=== PATIENT | female | born 1995 | race African-American/Black ===

== ENCOUNTER 2016-12-30 00:52 | Emergency (ER) | payer MEDICAID ==
[~2016-12-30] VITALS: Ht 165.1 cm; Wt 65.0 kg
[2016-12-30] MEDS ORDERED: SODIUM CHLORIDE 0.9% 1,000 ML IV ONE (05:15)
[2016-12-30] MEDS ORDERED: ONDANSETRON HCL 4MG/2ML VIAL IV STA (05:15)
[2016-12-30] MEDS ORDERED: FAMOTIDINE 20MG/2ML VIAL IV STA (05:15)
[2016-12-30 05:32] LABS: BASOPHILS % 0.7 % (0.0-2.0); EOSINOPHILS % 2.3 % (0.0-5.0); HEMATOCRIT. 43.5 % (36.0-48.0); MEAN CORPUSCULAR HEMOGLOBIN 31.7 pg (28.0-32.0); MEAN CORPUSCULAR HGB CONC 34.4 g/dL (31.0-37.0); MEAN PLATELET VOLUME 7.8 fl (7.4-10.4); MONOCYTES % 9.2 % (2.0-8.0); NEUTROPHILS % 53.8 % (40.0-76.0); PLATELET 277 x1000/uL (130-400); RED BLOOD CELL COUNT 4.73 mill/uL (4.2-5.4); RED CELL DISTRIBUTION WIDTH 12.9 % (11.6-14.6); WHITE BLOOD COUNT 5.8 x1000/uL (4.5-11.0)
[2016-12-30 05:49] LABS: ALANINE AMINOTRANSFERASE 20 IU/L (13-61); ALBUMIN 4.1 g/dL (3.4-5.0); ANION GAP 16; CALCIUM 8.6 mg/dL (8.5-10.1); CARBON DIOXIDE 25 mEq/L (21-32); CHLORIDE 105 mEq/L (98-107); INDEX HEMOLYSI 1 (1-3); INDEX ICTERIC 1 (1-4); INDEX LIPEMIC 1 (1-3); LIPASE 76 IU/L (73-393); TROPONIN I < 0.02 ng/mL (0.00-0.04); UREA NITROGEN BLOOD 7 mg/dL (7-21); eGFR > 60 mL/min (>60)
[2016-12-30 08:42] VITALS: BP 102/84
== END 2016-12-30 09:11 | disposition home or self-care (01) ==
LOC: ER 00:54
DX: K29.70 Gastritis, unspecified, without bleeding (principal); K85.90 Acute pancreatitis without necrosis or infection, unspecified; K21.9 Gastro-esophageal reflux disease without esophagitis; E16.2 Hypoglycemia, unspecified; F10.21 Alcohol dependence, in remission
CPT/HCPCS: 36415; 71010; 80053; 81025; 83690; 84484; 85025; 93005; 96361; 96374; 96375; 99285; J2405; J3490; J7030

== ENCOUNTER 2019-05-16 15:45 | Observation (INO) | payer MEDICAID, MEDICARE ==
[~2019-05-16] VITALS: Ht 165.1 cm; Wt 64.4 kg
[2019-05-16] MEDS: LACTATED RINGERS 1,000 ML IV SCH ×2 (16:36→19:20)
[2019-05-16 16:37] LABS: CLARITY URINE CLOUDY (CLEAR); COLOR URINE YELLOW (YELLOW); KETONES URINE NEGATIVE (NEGATIVE); LEUKOCYTE ESTERASE URINE 1+ (NEGATIVE); NITRITE URINE NEGATIVE (NEGATIVE); OCCULT BLOOD URINE TRACE (NEGATIVE); PH URINE 6.5 (4.5-8.0); PROTEIN URINE NEGATIVE (NEGATIVE); SPECIFIC GRAVITY URINE 1.025 (1.005-1.030)
[2019-05-16] MEDS: TERBUTALINE SULFATE 1MG/ML VIAL SUBCUT PRN ×2 (18:06→19:20)
[2019-05-16 18:34] LABS: CLARITY URINE CLEAR (CLEAR); COLOR URINE YELLOW (YELLOW); KETONES URINE NEGATIVE (NEGATIVE); LEUKOCYTE ESTERASE URINE NEGATIVE (NEGATIVE); NITRITE URINE NEGATIVE (NEGATIVE); OCCULT BLOOD URINE TRACE (NEGATIVE); PROTEIN URINE NEGATIVE (NEGATIVE); SPECIFIC GRAVITY URINE 1.023 (1.005-1.030)
[2019-05-16] MEDS ORDERED: prenatal vitamins (19:33)
[2019-05-16] MEDS ORDERED: ferrous sulfate (19:33)
== END 2019-05-16 19:45 | disposition home or self-care (01) ==
LOC: 8 EST LDRP 15:45
PROVIDERS: ADMIT Specialist; ATTEND Specialist
DX: O26.892 Other specified pregnancy related conditions, second trimester (principal); R35.0 Frequency of micturition; R10.9 Unspecified abdominal pain; O99.89 Other specified diseases and conditions complicating pregnancy, childbirth and the puerperium; M54.9 Dorsalgia, unspecified; O26.852 Spotting complicating pregnancy, second trimester; Z3A.27 27 weeks gestation of pregnancy
CPT/HCPCS: 81003; 87086; 96372; 99281; G0378; J3105; 96360; 96361; J7120

== ENCOUNTER 2019-06-17 10:56 | Inpatient (IN) | payer MEDICAID ==
[~2019-06-17] VITALS: Ht 160 cm; Wt 61.2 kg
[~2019-06-17 10:56] MED LIST: ferrous sulfate; prenatal vitamins
[2019-06-17] MEDS ORDERED: DEXT 5%/LR + PITOCIN 20UNITS/L 1,000 ML IV SCH ×2 (11:16→12:16)
[2019-06-17] MEDS ORDERED: NALOXONE HCL 0.4 MG/ML 1ML VIAL IM PRN (11:30)
[2019-06-17] MEDS ORDERED: RHO(D) IMMUNE GLOBULIN 300 MCG/SYR IM ONE (11:30)
[2019-06-17] MEDS ORDERED: LIDOCAINE HCL 1% 20ML VIAL (Pyxis) INJ INFIL SCH (11:30)
[2019-06-17] MEDS ORDERED: CARBOPROST TROMETHAMINE 250 MCG/ML AMPUL IM PRN (11:30)
[2019-06-17] MEDS ORDERED: BUTORPHANOL TARTRATE 2 MG/ML VIAL IV PRN (11:30)
[2019-06-17] MEDS ORDERED: MISOPROSTOL 100MCG TABLET VG SCH (11:30)
[2019-06-17] MEDS ORDERED: METHYLERGONOVINE MALEATE 0.2 MG/ML IM PRN (11:30)
[2019-06-17] MEDS ORDERED: FENTANYL CITRATE/PF 50MCG/ML 2ML VIAL ONE (11:48)
[2019-06-17] MEDS ORDERED: MIDAZOLAM HCL 2 MG/2 ML VIAL ONE (11:49)
[2019-06-17 12:27] LABS: CLARITY URINE CLEAR (CLEAR); COLOR URINE YELLOW (YELLOW); KETONES URINE NEGATIVE (NEGATIVE); LEUKOCYTE ESTERASE URINE NEGATIVE (NEGATIVE); NITRITE URINE NEGATIVE (NEGATIVE); OCCULT BLOOD URINE 2+ (NEGATIVE); PROTEIN URINE 1+ (NEGATIVE); SPECIFIC GRAVITY URINE 1.019 (1.005-1.030)
[2019-06-17] MEDS ORDERED: IBUPROFEN 400MG TABLET PO PRN (12:30)
[2019-06-17] MEDS ORDERED: RHO(D) IMMUNE GLOBULIN 300 MCG/SYR IM PRN (12:30)
[2019-06-17 12:50] LABS: PARTIAL THROMBOPLASTIN TIME 27.5 sec (23.4-31.0); PROTHROMBIN TIME 9.9 sec (9.6-11.0)
[2019-06-17 13:10] LABS: HEPATITIS B SURFACE ANTIGEN NEGATIVE
[2019-06-17 13:14] LABS: *AMPHETAMINES SCREEN URINE NEGATIVE (NEGATIVE); *BARBITURATES SCREEN URINE NEGATIVE (NEGATIVE); *BENZODIAZEPINES SCREEN URINE NEGATIVE (NEGATIVE)
[2019-06-17 13:15] LABS: METHADONE URINE SCREEN NEGATIVE (NEGATIVE); OPIATES URINE SCREEN NEGATIVE (NEGATIVE); PHENCYCLIDINE URINE SCREEN NEGATIVE (NEGATIVE)
[2019-06-17 13:33] LABS: *COCAINE SCREEN URINE PRESUMTIVE POSITIVE (NEGATIVE); CANNABINOID URINE SCREEN PRESUMTIVE POSITIVE (NEGATIVE)
[2019-06-17 14:30] VITALS: BP 129/79
[2019-06-17 15:00] VITALS: BP 123/81
[2019-06-17 16:37] VITALS: BP 103/65
[2019-06-17 19:51] VITALS: BP 130/78
[2019-06-17] MEDS: IBUPROFEN 800MG TABLET PO PRN (19:51)
[2019-06-17 20:00] VITALS: BP 128/80
[2019-06-18 06:45] LABS: BASOPHILS % 0.2 % (0.0-2.0); EOSINOPHILS % 0.4 % (0.0-5.0); HEMATOCRIT. 29.4 % (36.0-48.0); HEMOGLOBIN. 10.2 g/dL (12.0-16.0); LYMPHOCYTES % 19.6 % (20.0-50.0); MEAN CORPUSCULAR HEMOGLOBIN 31.5 pg (28.0-32.0); MEAN CORPUSCULAR VOLUME 90.9 fL (81.0-99.0); NEUTROPHILS % 71.8 % (40.0-76.0); PLATELET 152 x1000/uL (130-400); RED BLOOD CELL COUNT 3.23 mill/uL (4.2-5.4); RED CELL DISTRIBUTION WIDTH 12.9 % (11.6-14.6)
[2019-06-18 07:35] VITALS: BP 116/50
[2019-06-18] MEDS: IBUPROFEN 800MG TABLET PO PRN (08:52)
[2019-06-18 16:08] VITALS: BP 104/61
[2019-06-18 19:30] VITALS: BP 124/81
[2019-06-19 04:00] VITALS: BP 106/69
[2019-06-19 07:45] VITALS: BP 105/54
[2019-06-19] MEDS ORDERED: TETANUS, DIPHTHERIA, PERTUSSIS VAC/PF 0.5ML (>7YR OLD) IM ONE (09:00)
== END 2019-06-19 11:10 | disposition home or self-care (01) | DRG 560 ==
LOC: 8 EST LDRP 10:56 → OBSVTOIN 10:56 → 8EST 16:50
PROVIDERS: ADMIT Obstetrics & Gynecology; ATTEND Obstetrics & Gynecology
PROC: 10E0XZZ Delivery of Products of Conception, External Approach (ICD-10-PCS; principal; 2019-06-17)
DX: O60.14X0 Preterm labor third trimester with preterm delivery third trimester, not applicable or unspecified (principal); Z37.0 Single live birth; Z3A.32 32 weeks gestation of pregnancy
CPT/HCPCS: 36415; 80305; 80349; 80353; 81003; 86592; 86703; 86762; 86850; 86900; 87340; 88307; 90715; 99281; G0378; J0595; J2250; J3010

== ENCOUNTER 2020-08-18 11:39 | Observation (INO) | payer MEDICAID ==
[~2020-08-18] VITALS: Ht 162.6 cm; Wt 50.3 kg
[2020-08-18 12:46] LABS: BASOPHILS % 0.6 % (0.0-2.0); HEMATOCRIT. 29.2 % (36.0-48.0); HEMOGLOBIN. 10.4 g/dL (12.0-16.0); MEAN CORPUSCULAR HEMOGLOBIN 33.4 pg (28.0-32.0); MEAN CORPUSCULAR VOLUME 94.2 fL (81.0-99.0); MEAN PLATELET VOLUME 7.7 fl (7.4-10.4); NEUTROPHILS % 82.4 % (40.0-76.0); PLATELET 179 x1000/uL (130-400)
[2020-08-18 13:04] LABS: CHLORIDE 96 mEq/L (98-107)
== END 2020-08-18 13:30 | disposition home or self-care (01) ==
LOC: L&D 11:39
PROVIDERS: ADMIT Obstetrics & Gynecology; ATTEND Obstetrics & Gynecology
DX: O42.913 Preterm premature rupture of membranes, unspecified as to length of time between rupture and onset of labor, third trimester (principal); O26.893 Other specified pregnancy related conditions, third trimester; Z3A.31 31 weeks gestation of pregnancy
CPT/HCPCS: 36415; 59025; 76805; 76818; 80053; 85025; 86850; 86900; 86901; G0378; 99281

== ENCOUNTER 2020-08-18 13:40 | Emergency (ER) | payer MEDICAID ==
[~2020-08-18] VITALS: Ht 162.6 cm; Wt 60.7 kg
[2020-08-18] MEDS ORDERED: ACETAMINOPHEN 325MG TABLET PO STA (14:10)
[2020-08-18] MEDS ORDERED: ONDANSETRON 4MG ODT PO ONE (14:30)
[2020-08-18] MEDS ORDERED: SODIUM CHLORIDE 0.9% 1,000 ML IV ONE (15:00)
[2020-08-18 16:06] LABS: BASOPHILS % 0.2 % (0.0-2.0); HEMATOCRIT. 27.8 % (36.0-48.0); HEMOGLOBIN. 9.7 g/dL (12.0-16.0); LYMPHOCYTES % 10.2 % (20.0-50.0); MEAN CORPUSCULAR HEMOGLOBIN 32.8 pg (28.0-32.0); MEAN CORPUSCULAR VOLUME 93.9 fL (81.0-99.0); MEAN PLATELET VOLUME 7.8 fl (7.4-10.4); MONOCYTES % 7.1 % (2.0-8.0); NEUTROPHILS % 82.5 % (40.0-76.0); PLATELET 159 x1000/uL (130-400); RED BLOOD CELL COUNT 2.97 mill/uL (4.2-5.4); RED CELL DISTRIBUTION WIDTH 14.2 % (11.6-14.6)
[2020-08-18 16:09] LABS: CHLORIDE 97 mEq/L (98-107)
[2020-08-18] MEDS ORDERED: POTASSIUM CHLORIDE INJ 40 MEQ in DEXT 5% WATER 250 ML IV ONE (16:45)
[2020-08-18] MEDS ORDERED: IOHEXOL-350 100 ML BOTTLE ONE (19:15)
[2020-08-19] MEDS ORDERED: ACETAMINOPHEN 500MG TABLET PO ONE (03:45)
[2020-08-19 06:10] VITALS: BP 91/45
== END 2020-08-19 06:45 | disposition short-term general hospital (02) ==
LOC: ER 13:55
DX: O99.513 Diseases of the respiratory system complicating pregnancy, third trimester (principal); R07.89 Other chest pain; E87.6 Hypokalemia; Z20.828 Contact with and (suspected) exposure to other viral communicable diseases; Z3A.28 28 weeks gestation of pregnancy
CPT/HCPCS: 36415; 71045; 71275; 80053; 85025; 85379; 87426; 87635; 93005; 96365; 96366; 99285; C9803; J3480; J7060; Q0162; Q9967

== ENCOUNTER 2021-08-31 10:58 | Emergency (ER) | payer MEDICAID ==
[~2021-08-31] VITALS: Ht 167.6 cm; Wt 73.0 kg
[2021-08-31] MEDS ORDERED: ACETAMINOPHEN 325MG TABLET PO ONE (11:30)
[2021-08-31 12:03] LABS: BASOPHILS % 0.6 % (0.0-2.0); CHLORIDE 108 mEq/L (98-107); EOSINOPHILS % 1.3 % (0.0-5.0); HEMATOCRIT. 34.8 % (36.0-48.0); HEMOGLOBIN. 11.5 g/dL (12.0-16.0); LYMPHOCYTES % 24.2 % (20.0-50.0); MEAN CORPUSCULAR HEMOGLOBIN 31.2 pg (28.0-32.0); MEAN CORPUSCULAR VOLUME 94.2 fL (81.0-99.0); MEAN PLATELET VOLUME 7.4 fl (7.4-10.4); MONOCYTES % 8.3 % (2.0-8.0); NEUTROPHILS % 65.6 % (40.0-76.0); PLATELET 279 x1000/uL (130-400); RED CELL DISTRIBUTION WIDTH 13.5 % (11.6-14.6)
[2021-08-31 12:04] LABS: CLARITY URINE CLOUDY (CLEAR); COLOR URINE ORANGE (YELLOW); KETONES URINE NEGATIVE (NEGATIVE); LEUKOCYTE ESTERASE URINE 3+ (NEGATIVE); NITRITE URINE NEGATIVE (NEGATIVE); OCCULT BLOOD URINE 3+ (NEGATIVE); PROTEIN URINE 1+ (NEGATIVE); SPECIFIC GRAVITY URINE 1.021 (1.005-1.030)
[2021-08-31 12:28] LABS: B-HCG QUANTITATIVE 75002 mIU/mL (<3)
[2021-08-31 13:15] VITALS: BP 115/80
[2021-08-31] MEDS ORDERED: DEXT 5%/LR + PITOCIN 20UNITS/L 1,000 ML IV ONE (13:15)
== END 2021-08-31 13:52 | disposition left against medical advice (07) ==
LOC: ER 10:58 → EDBEDREQTM 13:19 → EDBEDREQ 13:19 → ER 13:52 → CANRESERV 21:05 → ENRESERV 21:05 → CANBEDREQ 09-01 15:54
DX: O26.891 Other specified pregnancy related conditions, first trimester (principal); N39.0 Urinary tract infection, site not specified; O03.4 Incomplete spontaneous abortion without complication; O23.41 Unspecified infection of urinary tract in pregnancy, first trimester; N93.9 Abnormal uterine and vaginal bleeding, unspecified
CPT/HCPCS: 36415; 76830; 76856; 80053; 81003; 81025; 84702; 85025; 86850; 86900; 88309; 99284; J2590

== ENCOUNTER 2022-05-26 22:03 | Emergency (ER) | payer MEDICAID ==
[~2022-05-26] VITALS: Ht 165.1 cm; Wt 61.0 kg
[2022-05-26] MEDS ORDERED: KETOROLAC 30MG/ML VIAL IV STA (22:39)
[2022-05-26 23:21] LABS: CHLORIDE 104 mEq/L (98-107)
[2022-05-26 23:23] LABS: HCG SCREEN NEGATIVE
[2022-05-26 23:52] LABS: BASOPHILS % 1.2 % (0.0-2.0); EOSINOPHILS % 0.5 % (0.0-5.0); HEMATOCRIT. 28.6 % (36.0-48.0); HEMOGLOBIN. 8.6 g/dL (12.0-16.0); LYMPHOCYTES % 23.8 % (20.0-50.0); MEAN CORPUSCULAR HEMOGLOBIN 22.5 pg (28.0-32.0); MEAN CORPUSCULAR VOLUME 74.7 fL (81.0-99.0); MEAN PLATELET VOLUME 7.4 fl (7.4-10.4); MONOCYTES % 7.4 % (2.0-8.0); NEUTROPHILS % 67.1 % (40.0-76.0); PLATELET 195 x1000/uL (130-400); RED BLOOD CELL COUNT 3.82 mill/uL (4.2-5.4); RED CELL DISTRIBUTION WIDTH 20.8 % (11.6-14.6)
[2022-05-27] MEDS ORDERED: FERR324T4 MT (00:05)
[2022-05-27] MEDS ORDERED: IBUP-2028 MT (00:05)
[2022-05-27 00:30] VITALS: BP 123/85
== END 2022-05-27 00:45 | disposition home or self-care (01) ==
LOC: ER 22:06
DX: R07.89 Other chest pain (principal); D64.9 Anemia, unspecified; D72.819 Decreased white blood cell count, unspecified; F17.290 Nicotine dependence, other tobacco product, uncomplicated
CPT/HCPCS: 36415; 71045; 80053; 81025; 84484; 84703; 85025; 93005; 96374; 99285; J1885

== ENCOUNTER 2022-10-03 03:01 | Emergency (ER) | payer MEDICAID ==
[~2022-10-03] VITALS: Ht 162.6 cm; Wt 58.0 kg
[~2022-10-03 03:01] MED LIST changes: +FERR324T4 MT; +IBUP-2028 MT; -ferrous sulfate; -prenatal vitamins
[2022-10-03 04:31] VITALS: BP 145/110
[2022-10-03] MEDS ORDERED: SODIUM CHLORIDE 0.9% 1,000 ML IV ONE (05:00)
== END 2022-10-03 13:24 | disposition left against medical advice (07) ==
LOC: ER 03:01
DX: Z53.21 Procedure and treatment not carried out due to patient leaving prior to being seen by health care provider (principal); R11.2 Nausea with vomiting, unspecified; R10.9 Unspecified abdominal pain; R00.0 Tachycardia, unspecified
CPT/HCPCS: 93005; J7030; 99283